=== PATIENT | female | born 1945 | race Caucasian/White ===

== ENCOUNTER 2023-03-27 09:56 | Day surgery (SDC) | payer OTHER, MEDICARE ==
[2023-03-27] MEDS ORDERED: Ringers Lactate 1,000 ML IV ONE (10:25)
[2023-03-27] MEDS ORDERED: propofoL 200 MG/20 ML VIAL IV ONE (12:51)
[2023-03-27] MEDS ORDERED: dexAMETHasone 10 MG/ML VIAL ONE (12:51)
[2023-03-27] MEDS ORDERED: LIDOCAINE 2% MPF 5 ML VIAL ONE (12:51)
[2023-03-27] MEDS ORDERED: FENTANYL CITR 100 MCG/2 ML ONE ×2 (12:51→14:33)
[2023-03-27] MEDS ORDERED: ROCURONIUM 50 MG/5 ML VIAL IV ONE (12:52)
[2023-03-27] MEDS ORDERED: LIDOCAINE HCL/EPINEPHRINE 20 ML MDV ONE (13:37)
[2023-03-27] MEDS ORDERED: EPINEPHRINE/PF 1 MG/ML AMP ONE (13:37)
[2023-03-27] MEDS ORDERED: GLYCOPYRROLATE 0.2 MG/ML SYR ONE (15:07)
[2023-03-27] MEDS ORDERED: NEOSTIGMINE 1 MG/ML -10 ML VIAL ONE (15:17)
[2023-03-27 17:53] VITALS: BP 111/65; TEMP 97; O2SAT 93
--- NOTE | 2023-03-28 03:18 | P.OP ---
Emt I/85: NONE,NONE Preoperative diagnosis: Neoplams uncertain behavior, larynx and nasopharynx Postoperative diagnosis: same Primary procedure: nasopharynogscopy with biopsy Secondary procedure: direct laryngoscopy with tracheoscopy Anesthesia: general Estimated blood loss: 10ml Specimen: nasopharynx Findings: submucosal fluid collection in nasopharyx. unable to locate laryngeal lesio Operative Technique: The patient was brought to the operating room and placed under general anesthesia via oral endotracheal tube. The patient was noted to have mildly limited mouth opening with a very high and arched hard palate. A rubber tooth guard was placed on her upper dentition. The Flory Berci laryngoscope fitted with rigid telescope was used to perform a direct laryngoscopy with attention to the vocal folds. Upon initiation of the laryngoscopy, there was blood in the pharynx, presumably from intubation trauma which was suctioned. The laryngoscope was placed in suspension for better visualization. The anterior portion of the vocal fold was difficult to visualize due to the shape of the patient's throat and mouth. A 30 degree rigid telescope was used to better visualize the anterior commissure region which was of concern based on preoperative evaluation. With this angled scope, there was a small amount of blood which was suctioned but no obvious mass was identified. There was blood and clot along the posterior pharyngeal wall. The Flory Berci was removed and a Chance laryngoscope was then used to perform a direct laryngoscopy. It was noted that there was a mucosal laceration near the right tonsillar fossa which was suspected to be a result of anesthesia intubation. With the Chance placed in suspension, the 15 and 30 degree laryngoscope's were used to provide better visualization and photodocumentation of the vocal cords. There was a very tiny area on the anterior surface of the right vocal fold but there was no significant mass. With the patient's airway insecure suspension, the 6 oh endotracheal tube was removed and visualization with the telescope was performed. Globally there were no pedunculated or obvious masses of the supraglottis. The 0 degree endoscope was passed through the vocal cords and there were no masses or lesions noted in the subglottis. The scope was passed down nearly to the level of the andrew and there were no visualized masses, displaced tissue or other significant abnormality. The patient was reintubated and the laryngoscope was removed and a push pull fashion. The patient's nasal cavity was then examined with a 0 degree endoscope. There was sufficient mucosal edema to limit inspection. The nasal cavity was packed with Afrin-soaked pledgets for several minutes to aid in mucosal decongestion. After removal of the pledgets, the 0 degree endoscope was passed and the nasopharynx was visualized. Along the roof of the nasopharynx in the midline there was an area of bulging tissue and a straight Blakesley was used to obtain tissue biopsy from this area. With the biopsy, a small amount of mucopurulent fluid was noted to come from the tissue. The area was suctioned and clinical suspicion for possible Thornwaldt cyst was made. After the biopsy, a suction and Blakesley were gently used to probe the area but it appeared to be well unroofed and drained. An Afrin-soaked pledget was placed at the biopsy site for several minutes and then removed. The area appeared hemostatic and this portion of the procedure was concluded. After reviewing the preoperative flexible laryngoscopy images from the office, I elected to repeat the laryngoscopy to be absolutely sure that nothing was being missed. The Chance laryngoscope and rigid telescope's were again used to fully evaluate the patient's larynx. There was the laceration near the right tonsillar pillar which now appeared hemostatic. The posterior wall, arytenoids, piriform sinuses epiglottis and vallecular space all appeared to be free from any significant abnormality. The anterior commissure region was again inspected. It is my clinical suspicion that there was likely a pedunculated polyp on the right true vocal fold which was inadvertently dislodged during intubation by the anesthesia staff and that the tissue may have been removed during suctioning of clot upon initiation of the laryngoscopy. The tissue was not found during inspection of the larynx, pharynx, and trachea, therefore no tissue biopsy was obtained from this procedure. We will plan to evaluate the patient postoperatively in regards to her voice performance and in office laryngoscopy. Complications: None Implants: none Fluids & blood products: see anesthesia record Transferred to: Recovery Room Condition: Good
--- NOTE | 2023-03-28 14:25 | EKG ---
Test Date: 2023-03-24 Test Time: 16:07:37 Child Welfare Social Worker: TONY MEASUREMENT RESULTS: Intervals: Rate: 67 WA: 186 QRSD: 80 QT: 380 QTc: 401 [place]: P: 35 WA: 186 QRS: 12 T: 38 INTERPRETIVE STATEMENTS: Normal sinus rhythm Cannot rule out Anterior infarct, age undetermined Abnormal ECG No previous ECG available for comparison Electronically Signed On 03-28-23 14:14:24 [employer] by Reji Iraheta
== END 2023-03-27 17:32 | disposition home or self-care (01) ==
LOC: OR 09:56
PROVIDERS: ATTEND Otolaryngology
PROC: 09BN8ZX Excision of Nasopharynx, Via Natural or Artificial Opening Endoscopic, Diagnostic (ICD-10-PCS; principal; 2023-03-27 11:30)
PROC: 0BJ18ZZ Inspection of Trachea, Via Natural or Artificial Opening Endoscopic (ICD-10-PCS; 2023-03-27 11:30)
DX: J39.2 Other diseases of pharynx (principal); R49.0 Dysphonia
CPT/HCPCS: 30100; 31526; 93005; 88305; J2704; J2710; J2001; J3010 ×2; J1100; J7120; J0171